=== PATIENT | male | born 1955 | race Caucasian/White ===

== ENCOUNTER 2016-05-13 12:37 | Outpatient (CLI) | payer OTHER ==
[2016-05-13 13:22] LABS: Hemoglobin A1c 9.6 % (4.0-6.0)
== END 2016-05-13 12:38 | disposition home or self-care (01) ==
LOC: MADLAB 12:37
PROVIDERS: ATTEND Family Medicine
DX: E11.9 Type 2 diabetes mellitus without complications (principal)
CPT/HCPCS: 83036